=== PATIENT | female | born 1960 | race African-American/Black ===

== ENCOUNTER → 2020-06-18 | Outpatient (CLI) | payer BC ==
[~2020-06-18] MED LIST: ALPR0.5T PO; AMLO-187 PO; BUDE10.2 IH; CHOL500050 PO; GABA-585 PO; LEVO5TAB29 PO; METF500T16 PO; MONT10TA49 PO; PARO20TA3 PO; POTA10TA12 PO; SPIR25TA5 PO; VENTOLIN HFA18 GM INH
--- NOTE | 2020-06-21 22:30 | HP ---
ADMIT DATE: HISTORY OF PRESENT ILLNESS: The history is that the patient has had gallbladder disease for about 3-4 years. We saw her 4 years ago, sent by Dr. Lashell Aldana and she decided not to have surgery. Now for the past 3-4 months, she has had increasing pain in the right upper quadrant with bloating and gas distention and this happens mostly after she eats and mostly with fatty meals. She had a sonogram, which showed gallstones with no evidence of acute problems about 2 months ago at [facility]. There was no biliary dilatation. PAST MEDICAL HISTORY: Shows that she has had normal childhood diseases other than diabetes for which she takes oral hypoglycemics and hypertension for which she takes medication. ALLERGIES: She has no allergies to her knowledge. PAST SURGICAL HISTORY: Includes a hysterectomy about 12 years ago for bleeding fibroids, but no other surgery. SOCIAL HISTORY: Shows that she has 2 children, alive and well. She does not smoke, drink or use illicit drugs. FAMILY HISTORY: Positive for a sister who had gallstones and gallbladder surgery. PHYSICAL EXAMINATION: GENERAL: Shows that she is alert, cooperative, in no distress and basically doing well at this time. HEAD, EYES, NOSE AND THROAT: Grossly normal. CHEST: Clear bilaterally to auscultation. CARDIOVASCULAR: Her heart showed that she has no friction rub. There was no evidence of murmurs and she had a rate of 72 beats per minute and it was regular. ABDOMEN: At the time of examination was soft. There was no organomegaly, no mass, no tenderness. She did have a midline scar from her previous hysterectomy, which is where she did have a keloid formation. This was just below the umbilicus. She had no hernia at the time of examination. EXTREMITIES: Grossly normal. PELVIC: Not done. IMPRESSION: 1. Chronic cholecystitis and cholelithiasis. 2. Diabetes. 3. Hypertension. She has decided she wants to have the gallbladder disease as her primary care feels she is symptomatic and she wishes to have it done and we will plan the cholecystectomy. JEET SANDOVAL MD DR: AISHWARYA/zach JOB#: [id number] / [id number]
== END ==
LOC: LAB 13:55
PROVIDERS: ATTEND Specialist
DX: Z01.812 Encounter for preprocedural laboratory examination (principal); Z20.828 Contact with and (suspected) exposure to other viral communicable diseases
CPT/HCPCS: U0003

== ENCOUNTER 2020-06-22 07:57 | Day surgery (SDC) | payer BC ==
[~2020-06-22] VITALS: Ht 165.1 cm; Wt 93.0 kg
--- NOTE | 2020-06-22 06:43 | HP ---
ADMIT DATE: HISTORY OF PRESENT ILLNESS: The history is that the patient has had gallbladder disease for about 3-4 years. We saw her 4 years ago, sent by Dr. Lashell Aldana and she decided not to have surgery. Now for the past 3-4 months, she has had increasing pain in the right upper quadrant with bloating and gas distention and this happens mostly after she eats and mostly with fatty meals. She had a sonogram, which showed gallstones with no evidence of acute problems about 2 months ago at [facility]. There was no biliary dilatation. PAST MEDICAL HISTORY: Shows that she has had normal childhood diseases other than diabetes for which she takes oral hypoglycemics and hypertension for which she takes medication. ALLERGIES: She has no allergies to her knowledge. PAST SURGICAL HISTORY: Includes a hysterectomy about 12 years ago for bleeding fibroids, but no other surgery. SOCIAL HISTORY: Shows that she has 2 children, alive and well. She does not smoke, drink or use illicit drugs. FAMILY HISTORY: Positive for a sister who had gallstones and gallbladder surgery. PHYSICAL EXAMINATION: GENERAL: Shows that she is alert, cooperative, in no distress and basically doing well at this time. HEAD, EYES, NOSE AND THROAT: Grossly normal. CHEST: Clear bilaterally to auscultation. CARDIOVASCULAR: Her heart showed that she has no friction rub. There was no evidence of murmurs and she had a rate of 72 beats per minute and it was regular. ABDOMEN: At the time of examination was soft. There was no organomegaly, no mass, no tenderness. She did have a midline scar from her previous hysterectomy, which is where she did have a keloid formation. This was just below the umbilicus. She had no hernia at the time of examination. EXTREMITIES: Grossly normal. PELVIC: Not done. IMPRESSION: 1. Chronic cholecystitis and cholelithiasis. 2. Diabetes. 3. Hypertension. She has decided she wants to have the gallbladder disease as her primary care feels she is symptomatic and she wishes to have it done and we will plan the cholecystectomy. JEET SANDOVAL MD DR: AISHWARYA/zach JOB#: [id number] / [id number] KEN
[~2020-06-22 07:57] MED LIST changes: +BUPIVACAINE-EPI 0.5% 30 ML VIAL KIT. ONE; +HYDROmorphone 2 MG/ML VIAL IVP PRN; +IOHEXOL 300 MG/ML 50 ML VIAL. ONE; +IV RINGERS,LACTATED 1000ML 1,000 ML IV SCH; +MORPHINE SULFATE 2 MG/ML VIAL. IVP PRN; +PROCHLORPERAZINE 10 MG/2 ML VIAL. IVP PRN; +fentaNYL PF VIAL 100 MCG/2 ML VIAL IVP PRN
[2020-06-22] MEDS ORDERED: ceFAZolin SODIUM IV Push 1 GM VIAL. IVP PRN (08:00)
[2020-06-22] MEDS ORDERED: INSULIN LISPRO 100 UNIT/ML 3ML VIAL for OP,RR ONLY. SQ PRN (08:30)
[2020-06-22 08:57] LABS: BASO # 0.1 x10^3/uL (0.0-0.2); BASO % 1 % (0-3); EOS # 0.2 x10^3/uL (0.0-0.7); EOS % 3 % (0-3); HEMATOCRIT 40.3 % (36.0-47.0); HEMOGLOBIN 13.3 g/dL (12.0-15.5); LYMPH # 2.8 x10^3/uL (1.0-4.8); LYMPH % 37 % (24-48); MEAN CORPUSCULAR HEMOGLOBIN 28 pg (25-35); MEAN CORPUSCULAR HGB CONC 33 g/dL (31-37); MEAN CORPUSCULAR VOLUME 86 fL (79-100); MONO # 0.6 x10^3/uL (0.0-1.1); MONO % 7 % (0-9); NEUT % 52 % (31-73); PLATELET COUNT 320 x10^3/uL (140-400); RED BLOOD COUNT 4.68 x10^6/uL (3.50-5.40); RED CELL DISTRIBUTION WIDTH 14.2 % (11.5-14.5); WHITE BLOOD COUNT 7.8 x10^3/uL (4.0-11.0)
[2020-06-22] MEDS ORDERED: ROCURONIUM 50 MG/5 ML VIAL. ONE ×2 (08:58→09:43)
[2020-06-22] MEDS ORDERED: fentaNYL PF VIAL 100 MCG/2 ML VIAL ONE ×2 (08:58→09:44)
[2020-06-22] MEDS ORDERED: SUCCINYLCHOLINE 200 MG/10 ML VIAL. ONE (08:59)
[2020-06-22] MEDS ORDERED: GLYCOPYRROLATE 1 MG/5 ML VIAL. ONE (09:00)
--- NOTE | 2020-06-22 09:09 | PDOC ---
SURGICAL PROGRESS NOTE DATE: 06/22/20 TIME: 09:04 Op Note: Surgeon..............................................Aaron Pre op diag..........................................chronic cholecystitis and cholelithiasis Post op diag........................................dame Anesthesia..........................................general Procedure...........................................lap lefty Blood loss...........................................15cc Drains................................................none Fluids................................................see anesthesia sheet Condition...........................................satisfactory Labs Laboratory Tests Test 06/22/20 09:01 Glucose (Fingerstick) 104 mg/dL (70-99) Laboratory Tests Test 06/22/20 09:01 Glucose (Fingerstick) 104 mg/dL (70-99) Justicifation of Admission Dx: Justifications for Admission: Justification of Admission Dx: Yes JEET SANDOVAL MD Jun 22, 2020 09:09
[2020-06-22 09:10] LABS: PROTHROMBIN TIME PATIENT 13.1 SEC (11.7-14.0)
[2020-06-22] MEDS ORDERED: diphenhydrAMINE 50 MG/ML VIAL ONE ×2 (09:11→09:13)
[2020-06-22] MEDS ORDERED: MIDAZOLAM HCL/PF 2 MG/2 ML VIAL. ONE (09:12)
[2020-06-22 09:21] LABS: CALCIUM 9.3 mg/dL (8.5-10.1); CREATININE 0.9 mg/dL (0.6-1.0); GFR 76.8; POTASSIUM 3.4 mmol/L (3.5-5.1)
[2020-06-22 09:27] LABS: ALBUMIN 3.4 g/dL (3.4-5.0); ALBUMIN/GLOBULIN RATIO 0.9 (1.0-1.7); TOTAL BILIRUBIN 0.3 mg/dL (0.2-1.0); TOTAL PROTEIN 7.2 g/dL (6.4-8.2)
[2020-06-22] MEDS ORDERED: SEVOFLURANE > 120 MINUTES. IH ONE (10:31)
[2020-06-22] MEDS ORDERED: PROPOFOL 10 MG/ML (20ML) VIAL. IV ONE (11:07)
[2020-06-22] MEDS ORDERED: LIDOCAINE 2% PF 5 ML VIAL. ONE (11:07)
[2020-06-22] MEDS ORDERED: NEOSTIGMINE METHYLSULFATE 5 MG/5 ML SYRINGE. ONE (11:15)
--- NOTE | 2020-06-22 11:52 | DISCH ---
DISCHARGE INSTRUCTIONS Condition on Discharge Condition on Discharge: Stable Activity After Discharge Activity Instructions for Disc: Avoid exertion Other activity instructions: No strenuous activity Diet after Discharge Additional Diet Restrictions: clear liqids x 48 hgours then resume pre op diet Wound Incision Care Other wound/incision instructi: May shower..leave dressin on as long as possible..do not remove to shower.. Checks after Discharge DC Comment: Wear abd binder tight when OOB at all times, ve veryloose or off in bed. Follow-Up Follow up with: call and make appt to to be seen by me in 14 days. JEET SANDOVAL MD Jun 22, 2020 11:52
[2020-06-22 12:55] VITALS: BP 152/60
[2020-06-22] MEDS ORDERED: oxyCODONE/APAP 5/325 1 TAB TABLET PO ONE (13:15)
--- NOTE | 2020-06-23 03:41 | OP ---
DATE OF SURGERY: 06/22/2020 SURGEON: Ced Sandoval MD PREOPERATIVE DIAGNOSES: Chronic cholecystitis and cholelithiasis. POSTOPERATIVE DIAGNOSES: Chronic cholecystitis and cholelithiasis with intraabdominal adhesions. ANESTHESIA: General. PROCEDURE: Laparoscopic cholecystectomy. TECHNIQUE: Under general anesthesia, the patient was properly prepped and draped in a routine fashion. She has had lower abdominal incision with a hysterectomy and in fact had a midline scar below the umbilicus with keloid at the umbilicus. As such, we made a small incision in the right upper quadrant where we inspected and no adhesions and this was done with a 15 blade. We then pulled up on either side with towel clips and passed a Veress needle into the peritoneal cavity. We then let about 2-3 mL of saline go in by gravity. We then insufflated the abdomen up to 15 and then passed a 5 mm scope. The 5 mm trocar was used at that point. We identified the adhesions, which were mostly inferior and to the left of the umbilicus and we saw that we could go above the umbilicus without having to lyse adhesions. As such, we made a supraumbilical incision longitudinally with a 15 blade and then passed a 10 mm and 11 mm trocars into the peritoneal cavity, making certain to not miss any adhesions and not damage any intra-abdominal content. We then removed the 5 mm scope, put the 10 mm scope in and then inspected the area. We placed a 5 mm trocar in the lateral right abdomen, and then placed 1 just to the right of the falciform ligament in the epigastrium. We then passed the graspers in. We placed the patient in reverse Trendelenburg left side down and identified the gallbladder, it was quite large, had large stones in it, being a centimeter or so in size. We grasped the ampulla of the gallbladder, which was very large and pushed it up toward the right shoulder. We then grasped the ampulla of the gallbladder with the right upper quadrant grasper and then we were able to identify the cystic duct as we pulled some of the fat away. We encircled the cystic duct, saw it going directly to the gallbladder. She is ALLERGIC TO DYE and other materials and we decided not to do a cholangiogram as this may cause more problems than it would help. The stones were large. The cystic duct was small. The dangers of doing the cholangiogram were more than not doing it. As such, this was not done. We clipped the cystic duct 3 times on the patient's side and twice high up on the gallbladder and divided it. We did not see the artery until after we had slowly dissected using the Harmonic scalpel. We got higher up and we saw the cystic artery. This was clipped twice on the patient's side, once on the gallbladder side and divided. The gallbladder was then shelled out of the gallbladder fossa using the Harmonic scalpel and not damaging the liver. Before we had completely removed this, we did inspect the hilum of the gallbladder and saw no bleeding and no abnormalities. There were no bile leaks and all was well. We then amputated the gallbladder from the liver tip. We then placed the 5 mm scope in the epigastric port and placed the EndoCatch basket through the supraumbilical port. We then placed the gallbladder and closed the site of the gallbladder and stones. We knew we had to make a larger incision and as such, removed the trocar and part of the bag came up. We then used Burleson retractors to get down to the fascia and divided the fascia superiorly with the Nieto scissors and we were able to then deliver the gallbladder and gallbladder contents. The resultant defect was inspected as there was air coming out. ____ we grasped the superior and inferior portions of the fascia with Alma Rosa clamps and pulled them up. We then closed the wound using interrupted #1 Prolene sutures. These were tied. We then insufflated the abdomen and inspected the area and made certain we had not injured any intra-abdominal contents and nothing was adherent to the incision in the abdomen under direct visualization of the incision site from the intraoperative visualization. We then injected 0.5% Marcaine with epinephrine into the fascia. We then inspected the gallbladder, we did aspirate some blood from the lateral portions of the liver where some blood had pooled. This was minimum, however. We then inspected all areas. There were no problems and all of the CO2 was removed from above the liver and out of the abdomen. The trocars were removed and the procedure was basically terminated. We irrigated the wounds with saline and then at the supraumbilical incision approximated the subcutaneous with 4-0 Vicryl and then closed the skin using a 5-0 subcuticular Vicryl. The other incisions were likewise closed with a subcuticular 5-0 Vicryl. Sterile Tegaderm dressings were applied and the procedure was terminated. The blood loss was about 10-15 mL. Fluids given can be obtained from the anesthesia sheet. No drains were used. Condition of the patient was satisfactory as she has returned to the recovery room. CED SANDOVAL MD DR: AISHWARYA/zach JOB#: [id number] / [id number] KEN
== END 2020-06-22 13:40 | disposition home or self-care (01) ==
LOC: SURG 07:57 → EDUNIT# 13:00 → SURG 13:40
PROVIDERS: ATTEND Specialist
DX: K80.10 Calculus of gallbladder with chronic cholecystitis without obstruction (principal); K66.0 Peritoneal adhesions (postprocedural) (postinfection); I10 Essential (primary) hypertension; K21.9 Gastro-esophageal reflux disease without esophagitis; E11.42 Type 2 diabetes mellitus with diabetic polyneuropathy; M19.90 Unspecified osteoarthritis, unspecified site; F41.9 Anxiety disorder, unspecified; Z90.710 Acquired absence of both cervix and uterus; Z98.890 Other specified postprocedural states; Z79.899 Other long term (current) drug therapy; Z79.84 Long term (current) use of oral hypoglycemic drugs; Z91.041 Radiographic dye allergy status; Z72.89 Other problems related to lifestyle
CPT/HCPCS: 36415; 47562; 80053; 82962; 85025; 85610; 85730; J0330; J1200; J2250; J2704; J2710; J3010; J3490; 88304; Q9967

== ENCOUNTER → 2020-06-29 | Outpatient (CLI) | payer BC ==
[2020-06-22 12:55] VITALS: BP 152/60
[~2020-06-29] MED LIST changes: -BUPIVACAINE-EPI 0.5% 30 ML VIAL KIT. ONE; -HYDROmorphone 2 MG/ML VIAL IVP PRN; -IOHEXOL 300 MG/ML 50 ML VIAL. ONE; -IV RINGERS,LACTATED 1000ML 1,000 ML IV SCH; -MORPHINE SULFATE 2 MG/ML VIAL. IVP PRN; -PROCHLORPERAZINE 10 MG/2 ML VIAL. IVP PRN; -fentaNYL PF VIAL 100 MCG/2 ML VIAL IVP PRN
[2020-06-29 10:53] LABS: BASO # 0.1 x10^3/uL (0.0-0.2); BASO % 1 % (0-3); EOS # 0.3 x10^3/uL (0.0-0.7); EOS % 4 % (0-3); HEMATOCRIT 42.3 % (36.0-47.0); HEMOGLOBIN 13.8 g/dL (12.0-15.5); LYMPH # 2.5 x10^3/uL (1.0-4.8); LYMPH % 35 % (24-48); MEAN CORPUSCULAR HEMOGLOBIN 28 pg (25-35); MEAN CORPUSCULAR HGB CONC 33 g/dL (31-37); MEAN CORPUSCULAR VOLUME 87 fL (79-100); MONO # 0.5 x10^3/uL (0.0-1.1); MONO % 7 % (0-9); NEUT # 3.8 x10^3/uL (1.8-7.7); NEUT % 53 % (31-73); PLATELET COUNT 366 x10^3/uL (140-400); RED BLOOD COUNT 4.89 x10^6/uL (3.50-5.40); RED CELL DISTRIBUTION WIDTH 14.2 % (11.5-14.5); WHITE BLOOD COUNT 7.2 x10^3/uL (4.0-11.0)
[2020-06-29 11:02] LABS: ALBUMIN 3.5 g/dL (3.4-5.0); ALBUMIN/GLOBULIN RATIO 0.8 (1.0-1.7); CALCIUM 9.3 mg/dL (8.5-10.1); CREATININE 0.9 mg/dL (0.6-1.0); GFR 76.8; POTASSIUM 3.7 mmol/L (3.5-5.1); TOTAL BILIRUBIN 0.4 mg/dL (0.2-1.0); TOTAL PROTEIN 7.8 g/dL (6.4-8.2)
== END ==
LOC: LAB 10:00
PROVIDERS: ATTEND Specialist
DX: K80.20 Calculus of gallbladder without cholecystitis without obstruction (principal)
CPT/HCPCS: 36415; 80053; 85025